=== PATIENT | male | born 2005 | race Two or more races ===

== ENCOUNTER 2023-04-07 11:21 | Inpatient (IN) ==
[2023-04-07] MEDS ORDERED: SODIUM CHLORIDE 0.9% 1000ML 1,000 ML IV ONE (12:25)
[2023-04-07] MEDS ORDERED: ONDANSETRON INJ 2 MG/ML 2 ML VIAL IV STA (12:25)
--- NOTE | 2023-04-07 12:31 | Emergency Department Note ---
Impression & Plan SBO (small bowel obstruction), Vomiting ED Provider Note NAME: TOSHIA GODINEZ AGE: 18 SEX: M : 2005 ARRIVES VIA: Walk-In INFORMANT: Patient, ED PROVIDER(S): Jg King DO CHIEF COMPLAINT: Nausea and vomiting HPI: The patient is a 18-year-old male who presented to the emergency department for an evaluation of nausea and vomiting. The patient states he started having symptoms overnight last night. He has been vomiting dark green emesis. He has intermittent episodes of abdominal pain which resolved when he vomits. He den ies having any GI bleeding. He has no diarrhea. He thinks he may have eaten bad meat from [employer] last evening. He has not been seen by provider prior to coming to the emergency department. ROS: See above HPI for pertinent positives & negatives. A total of 10 systems reviewed and were otherwise negative. PAST MEDICAL HISTORY: See Below PAST SURGICAL HISTORY: See Below FAMILY HISTORY: See Below SOCIAL HISTORY: See Below HOME MEDICATIONS: See Below ALLERGIES: See Below VITALS: See Below PHYSICAL EXAMINATION: GENERAL: Patient is awake alert in no acute distress patient is resting comfortably and showing no signs of anxiety EYES: The conjunctivae are clear. The pupils are round and reactive. EARS, NOSE, MOUTH AND THROAT: The nose is without any evidence of any deformity. Mucous membranes are dry. NECK: The neck is nontender and supple. RESPIRATORY: Normal respiratory effort is noted there is no evidence of wheezing rhonchi or rales CARDIOVASCULAR: Regular rate and rhythm noted there no murmurs rubs or gallops normal S1 normal S2. GASTROINTESTINAL: The abdomen is soft and mildly distended. There is epigastric tenderness to palpation but no guarding or rigidity. MUSCULOSKELETAL/EXTREMITIES: There is no evidence of gross deformity full range of motion is noted in the hips and shoulders. SKIN: There is no obvious evidence of any rash. There are no petechiae, pallor or cyanosis noted. NEUROLOGIC: Patient is awake alert and oriented x3 strength is symmetric patellar reflexes are 2+ bilaterally MEDICAL DECISION MAKING: The patient is a 18-year-old male who presented to the emergency department for nausea vomiting. He did have abdominal pain. Abdominal exam appeared to be consistent with abdominal distention as well as epigastric tenderness but this was not a clear surgical abdomen. Given his exam CT of the abdomen pelvis was obtained to rule out any other intra-abdominal pathology. I discussed the patient's laboratory and radiographic studies with him. He was treated with IV fluids and IV pain medication in the emergency department. On subsequent reevaluation he was improved. I discussed the patient's condition with the on- call general surgical group. They have agreed to evaluate the patient in the emergency department for further management and disposition. Triage Nursing notes reviewed. Prior medical records reviewed Vital Signs: reviewed and remarkable for no significant abnormalities Differential diagnosis: Gastroenteritis, food borne illness, infections, appendicitis, diverticulitis, inflammatory bowel disease, obstruction, GI bleed, biliary pathology, volvulus, as well as other pathologies. ER treatment provided: See below Diagnostics interpreted by me: ECG: none Cardiac Monitoring: An order was placed for continuous cardiac monitoring. The monitor shows a rate of 86 bpm with sinus rhythm. Laboratory studies: As stated above and show below. Imaging studies: See below. Radiographic imaging was reviewed by myself Consultation(s): I discussed this case with Bel who is covering for general surgery. Past Med/Surg History Medical History G6PD deficiency Social History Smoking Status: Former smoker Tobacco Type: E-cigarettes / Vaping Preferred Language: Telugu Feels Safe at Home: Yes Allergies Allergies Allergy/AdvReac Type Severity Reaction Status Date / Time acetaminophen Allergy Unknown pt has G6PD Verified 03/21/23 21:05 alfalfa Allergy Unknown pt has G6PD Verified 03/21/23 21:05 aspirin Allergy Unknown pt has G6PD Verified 03/21/23 21:05 blueberry Allergy Unknown pt has G6PD Verified 03/21/23 21:05 chloramphenicol Allergy Unknown pt has G6PD Verified 03/21/23 21:05 chloroquine Allergy Unknown pt has G6PD Verified 03/21/23 21:05 dapsone Allergy Unknown pt has G6PD Verified 03/21/23 21:05 everardo barksdale Allergy Unknown pt has G6PD Verified 03/21/23 21:05 isoniazid Allergy Unknown pt has G6PD Verified 03/21/23 21:05 isosorbide Allergy Unknown pt has G6PD Verified 03/21/23 21:05 lentils Allergy Unknown pt has G6PD Verified 03/21/23 21:05 methylene blue Allergy Unknown pt has G6Pd Verified 03/21/23 21:05 nitrofurantoin Allergy Unknown pt has G6PD Verified 03/21/23 21:05 peas Allergy Unknown pt has G6PD Verified 03/21/23 21:05 phenazopyridine Allergy Unknown pt has G6PD Verified 03/21/23 21:05 primaquine Allergy Unknown pt has G6PD Verified 03/21/23 21:05 quinine Allergy Unknown pt has G6PD Verified 03/21/23 21:05 Quinolones Allergy Unknown pt has G6PD Verified 03/21/23 21:05 rasburicase Allergy Unknown pt has G6PD Verified 03/21/23 21:05 sulfadiazine Allergy Unknown pt has G6PD Verified 03/21/23 21:05 sulfasalazine Allergy Unknown pt has G6PD Verified 03/21/23 21:05 Thiazides Allergy Unknown pt has G6PD Verified 03/21/23 21:05 tolbutamide Allergy Unknown pt has G6PD Verified 03/21/23 21:05 cotrimoxazole Allergy Unknown pt has G6PD Uncoded 03/21/23 21:05 dinitrate Allergy Unknown pt has G6PD Uncoded 03/21/23 21:05 glibenclamide Allergy Unknown pt has G6PD Uncoded 03/21/23 21:05 kidney barksdale Allergy Unknown pt has G6PD Uncoded 03/21/23 21:05 lester barksdale Allergy Unknown pt has G6PD Uncoded 03/21/23 21:05 liquorice Allergy Unknown pt has G6PD Uncoded 03/21/23 21:05 vitamin c Allergy Unknown pt has G6PD Uncoded 03/21/23 21:05 vitamin k Allergy Unknown pt has G6PD Uncoded 03/21/23 21:05 Home Meds Home Medications Medication Instructions Recorded Confirmed lisdexamfetamine 10 mg capsule 20 mg PO QAM 08/13/22 03/21/23 (Vyvanse) lisdexamfetamine 50 mg capsule 50 mg PO QAM 08/13/22 03/21/23 (Vyvanse) methylphenidate HCl 5 mg tablet 15 mg PO .DAILY @ 1600 11/03/22 03/21/23 Results & Data (ED) Vital Signs Vital Signs - 24 hr 04/07/23 11:49 04/07/23 12:12 04/07/23 15:21 Temperature 36.9 C Temperature Source Temporal Artery Scan Pulse Rate 86 Pulse Rate [Finger] 86 Respiratory Rate 18 19 Respiratory Effort / Characteristics Non-Labored Spontaneous Respiratory Depth Normal Respiratory Pattern Regular Blood Pressure 132/83 Blood Pressure Mean 99 Pulse Oximetry 97 99 97 Oxygen Delivery Method Room Air Room Air Room Air Sepsis Recent Fever Within 48 Hours No Sepsis New/Unexplained Change in Mental Status N/A Sepsis Action Taken by Nursing No Action Required Home Medications Current Medication List: was personally reviewed by me Laboratory Data Attestation: I reviewed the patient's lab results. 04/07/23 12:15 04/07/23 12:15 Lab Results 04/07/23 04/07/23 Range/Units 12:15 12:15 WBC 7.89 (4.8-10.8) K/ul RBC 5.07 (4.70-6.10) M/uL Hgb 14.0 (14.0-18.0) g/dl Hct 42.6 (42.0-52.0) % MCV 84.0 (80.0-100.0) fL MCH 27.6 (25.0-34.0) pg MCHC 32.9 (32.0-36.0) g/dL RDW Std Deviation 36.2 L (36.4-46.3) fL RDW Coeff of Shefali 12.1 (11.5-14.5) % Plt Count 272 (130-400) K/uL MPV 9.3 L (9.4-12.4) fL Immature Gran % (Auto) 0.5 % Neut % (Auto) 79.6 % Lymph % (Auto) 12.0 % [place] % (Auto) 5.6 % Eos % (Auto) 1.3 % Baso % (Auto) 1.0 % Neut # (Auto) 6.28 (1.40-6.50) K/uL Lymph # (Auto) 0.95 L (1.2-3.4) K/uL [place] # (Auto) 0.44 (0.11-0.59) K/uL Eos # (Auto) 0.10 (0-0.50) K/uL Baso # (Auto) 0.08 (0-0.2) K/uL Immature Gran # (Auto) 0.04 (0.01-0.20) K/uL Sodium 136 (136-145) mmol/L Potassium 4.1 (3.5-5.1) mmol/L Chloride 102 (98-107) mmol/L Carbon Dioxide 26 (21-32) mmol/L Anion Gap 8 (3-11) BUN 18 (6-23) mg/dl Creatinine 0.85 (0.6-1.4) mg/dl Est Cr Clr Drug Dosing 148.5 ml/min Est GFR ( Amer) 145.4 ml/min Est GFR (Non-Af Amer) 125.4 ml/min BUN/Creatinine Ratio 21.2 H (10-20) Glucose 114 H (70-99(Fasting)) mg/dl Calcium 9.6 (8.6-10.3) mg/dl Total Bilirubin 1.4 H (0.2-1.0) mg/dl AST 40 H (13-39) U/L ALT 59 H (7-52) U/L Alkaline Phosphatase 84 (34-104) U/L Total Protein 8.1 (6.0-8.3) gm/dl Albumin 4.7 (3.4-5.0) gm/dl Globulin 3.4 (2.5-4.0) gm/dl Albumin/Globulin Ratio 1.4 (0.9-2) Administered Medications Discontinued Medications Sodium Chloride (Nss 1000ml) 1,000 mls @ 999 mls/hr IV .Q1H1M ONE Stop: 04/07/23 13:25 Last Infusion: 04/07/23 13:33 Dose: 0 mls/hr Documented By: Admin: 04/07/23 12:32 Dose: 999 mls/hr Documented By: Ioversol (Optiray 320 100ml) 84 ml IV ONCE ONE Stop: 04/07/23 13:21 Last Admin: 04/07/23 13:11 Dose: 84 ml Documented By: BRM Lorazepam (Lorazepam 2 Mg/1 Ml Vial) 0.5 mg IV NOW STA Stop: 04/07/23 14:47 Last Admin: 04/07/23 15:21 Dose: 0.5 mg Documented By: Morphine Sulfate (Morphine Sulfate 4 Mg/Ml 1 Ml Carp\\Vial) 4 mg IV NOW STA Stop: 04/07/23 12:44 Last Admin: 04/07/23 12:57 Dose: 4 mg Documented By: Morphine Sulfate (Morphine Sulfate 4 Mg/Ml 1 Ml Carp\\Vial) 4 mg IV NOW STA Stop: 04/07/23 14:18 Last Admin: 04/07/23 14:44 Dose: 4 mg Documented By: Ondansetron HCl (Ondansetron Inj 2 Mg/Ml 2 Ml Vial) 4 mg IV NOW STA Stop: 04/07/23 12:26 Last Admin: 04/07/23 12:32 Dose: 4 mg Documented By: Imaging Data Attestation: I personally reviewed and interpreted this imaging study as follows: My Impression: CT of the abdomen and pelvis was obtained in the emergency department. My interpretation is no free air, signs of bowel obstruction are noted. Final report below. Radiologist's Impression: Abdomen/Pelvis CT 04/07/23 12:43 CT abd pelvis IV con only CLINICAL HISTORY: right sided pain TECHNIQUE: Helical axial images of the abdomen and pelvis were obtained and displayed. Automated dose lowering techniques and/or adjustment according to patient size were utilized for this exam. This exam was performed with intravenous contrast. CT DOSE: 1092.14 mGy.cm COMPARISON: None available at the time of this dictation. FINDINGS: Lower chest: No acute abnormality. Liver: Unremarkable. No focal lesions are seen. Gallbladder and biliary tree: No calcified gallstones. Normal caliber wall. No intra- or extrahepatic biliary ductal dilation. Pancreas: Unremarkable, no focal lesions. Spleen: Unremarkable. Adrenals: Unremarkable. Kidneys and ureters: Unremarkable. Bladder: Unremarkable. Reproductive organs: Unremarkable. Bowel: There is an abrupt narrowing of the mid ileum in the right mid abdomen (series 3 image 2 7) with equalization of small bowel contents proximal to this. There is mild wall thickening at the transition point and in distal loops and the colon is underdistended. Lymph nodes Retroperitoneal: Subcentimeter lymph nodes are noted. Pelvic: Unremarkable. Mesenteric: Subcentimeter lymph nodes are noted. Peritoneum: There is small free fluid in the pelvis and abdomen. Vessels: Unremarkable. Abdominal wall: A fat-containing umbilical hernia is seen. Bones: Unremarkable. IMPRESSION: Findings compatible with high-grade partial small bowel obstruction. No closed- loop morphology or bowel ischemia is seen. ACT 112: Negative or not required by law. Electronically signed by: Adam Boston M.D. 04/07/2023 1:41 PM KUB X-Ray 04/07/23 15:19 KUB HISTORY: Status post placement of an enteric tube NG tube placement COMPARISON: CT abdomen and pelvis of same day FINDINGS: Status post placement of an enteric tube with distal tip projected superiorly at the gastric fundus. Persistent dilated loops of small bowel measu ring up to approximately 4 cm. Contrast noted within a distended urinary bladder and also within the bilateral renal collecting systems. No renal calculi. No ureteral calculi. No pneumoperitoneum or pneumatosis. No fracture. IMPRESSION: 1. Status post placement of an enteric tube with distal tip projected over the gastric fundus. 2. Persistent small bowel obstruction. ACT 112: Negative or not required by law. The above report was generated using voice recognition software. It may contain grammatical, syntax or spelling errors. Electronically signed by: Pedro Dugan M.D. 04/07/2023 3:33 PM Discharge Plan Visit Data Chief Complaint: Vomiting Stated Complaint: POSSIBLE FOOD POISONING; VOMITING; HEADACHE ED Provider: Jg King Discharge Problem: SBO (small bowel obstruction), Vomiting Patient Disposition: Being Evaluated by Surgeon Forms Stand Alone Forms: [facility] Prescriptions Prescriptions: No Action methylphenidate HCl 5 mg tablet 15 mg PO .DAILY @ 1600 Rx Instructions: PER PT "HAVE NOT TAKEN TODAY". Vyvanse 50 mg capsule 50 mg PO QAM Rx Instructions: TOTAL DOSE 70 MG--TAKES WITH 20 MG CAP. Vyvanse 10 mg capsule 20 mg PO QAM Rx Instructions: TOTAL DOSE 70 MG--TAKES WITH 50 MG CAP. Referrals Referrals: [facility] [Primary Care Provider] -
[2023-04-07 12:41] LABS: Basophils # (auto) 0.08 K/uL (0-0.2); Eosinophils % (auto) 1.3 %; Hematocrit (blood only) 42.6 % (42.0-52.0); Immature Granulocytes # (auto) 0.04 K/uL (0.01-0.20); Immature Granulocytes % (auto) 0.5 %; Lymphocytes # (auto) 0.95 K/uL (1.2-3.4); Mean Corpuscular Hemoglobin 27.6 pg (25.0-34.0); Mean Corpuscular Hgb Conc 32.9 g/dL (32.0-36.0); Mean Platelet Volume 9.3 fL (9.4-12.4); Monocytes # (auto) 0.44 K/uL (0.11-0.59); Monocytes % (auto) 5.6 %; Neutrophils # (auto) 6.28 K/uL (1.40-6.50); Neutrophils % (auto) 79.6 %; Platelet Count 272 K/uL (130-400); RDW Coefficient of Variation 12.1 % (11.5-14.5); RDW Standard Deviation 36.2 fL (36.4-46.3); Red Blood Count 5.07 M/uL (4.70-6.10); White Blood Count 7.89 K/ul (4.8-10.8)
[2023-04-07] MEDS ORDERED: MoRPHine SULFATE 4 MG/ML 1 ML CARP\\VIAL IV STA ×2 (12:43→14:17)
[2023-04-07 12:57] LABS: Albumin Globulin Ratio 1.4 (0.9-2); Albumin Level 4.7 gm/dl (3.4-5.0); BUN Creatinine Ratio 21.2 (10-20); Bilirubin,Total 1.4 mg/dl (0.2-1.0); Calcium 9.6 mg/dl (8.6-10.3); Creatinine Clr Calc Pharmacy 148.5 ml/min; Est GFR (African American) 145.4 ml/min; Est GFR (Non-African American) 125.4 ml/min; Globulin 3.4 gm/dl (2.5-4.0); Potassium 4.1 mmol/L (3.5-5.1); Total Protein 8.1 gm/dl (6.0-8.3)
[2023-04-07] MEDS ORDERED: OPTIRAY 320 100ml IV ONE (13:20)
--- NOTE | 2023-04-07 13:42 | CT Scan Report ---
CT abd pelvis IV con only CLINICAL HISTORY: right sided pain TECHNIQUE: Helical axial images of the abdomen and pelvis were obtained and displayed. Automated dose lowering techniques and/or adjustment according to patient size were utilized for this exam. This e xam was performed with intravenous contrast. CT DOSE: 1092.14 mGy.cm COMPARISON: None available at the time of this dictation. FINDINGS: Lower chest: No acute abnormality. Liver: Unremarkable. No focal lesions are seen. Gallbladder and biliary tree: No calcified gallstones. Normal caliber wall. No intra- or extrahepatic biliary ductal dilation. Pancreas: Unremarkable, no focal lesions. Spleen: Unremarkable. Adrenals: Unremarkable. Kidneys and ureters: Unremarkable. Bladder: Unremarkable. Reproductive organs: Unremarkable. Bowel: There is an abrupt narrowing of the mid ileum in the right mid abdomen (series 3 image 2 7) wi th equalization of small bowel contents proximal to this. There is mild wall thickening at the transi tion point and in distal loops and the colon is underdistended. Lymph nodes Retroperitoneal: Subcentimeter lymph nodes are noted. Pelvic: Unremarkable. Mesenteric: Subcentimeter lymph nodes are noted. Peritoneum: There is small free fluid in the pelvis and abdomen. Vessels: Unremarkable. Abdominal wall: A fat-containing umbilical hernia is seen. Bones: Unremarkable. IMPRESSION: Findings compatible with high-grade partial small bowel obstruction. No closed-loop morphology or bow el ischemia is seen. ACT 112: Negative or not required by law. Electronically signed by: Adam Boston M.D. 04/07/2023 1:41 PM
[2023-04-07] MEDS ORDERED: PROMETHAZINE HCL 12.5 MG in SODIUM CHLORIDE 0.9% 50 ML IV PRN (14:46)
[2023-04-07] MEDS ORDERED: MoRPHine SULFATE 2 MG/ML CARP IV PRN (14:46)
[2023-04-07] MEDS ORDERED: LORazepam 2 MG/1 ML VIAL IV STA (14:46)
--- NOTE | 2023-04-07 15:02 | History & Physical Report ---
Date of Service April 07, 2023 Assessment & Plan (1) SBO (small bowel obstruction): Plan: 18 year-old male with no history of abdominal surgeries presenting to ED with less than 12 hour history of abdominal pain in mid abdomen with associated nausea and vomiting after eating raw burger from [employer]. CT scan suggestive high grade SBO at mid ileum however no signs of closed loop obstruction or ischemia. Abdomen is soft, mildly distended and moderately tender in mid upper abdomen without peritonitis, rigidity or guarding. Plan: Discussed imaging results with patient. Etiology of SBO is unknown as he has had no prior obstructions however this could be secondary to gastroenteritis due to eating raw [employer]amburger meat and causing transient obstruction. Given his abdominal examination is without significant distention or any peritonitis, will plan for conservative measures with NGT for decompression and NPO for bowel rest with pain management as needed. Will repeat am labs KUB in am Will continue to closely monitor. Did discuss with patient if he does not improve with conservative measures he may need surgical intervention. Dr. Hernandez was present during my examination and discussed plan with patient. History of Present Illness Chief Complaint: abdominal pain with nausea and vomiting Primary Care Provider: [facility] Angelita is a 18 year-old male with no prior abdominal surgical history who presented to emergency department this morning with complaint of increasing abdominal pain in mid abdomen with associated nausea and vomiting after eating burger from [employer] in which he believes was raw. States he ate the burger caryl between 1-3 am and noticed the meat looked raw after vomiting. States he had a few more episodes of vomiting and pain and then pain improved after vomiting. Passing gas and had regular formed bowel movement this morning. Denies of any prior abdominal surgical history. Feeling chills and feverish but did not take temperature. Very anxious. ER work-up included labs which showed no leukocytosis. CT scan of abdomen/pelvis with IV contrast showing high grade SBO at mid ileum with thickening of the distal small bowel wall. No evidence of closed loop obstruction or ischemia. Pain was about 8/10 then /10 with first dose of IV Morphine. Now rating pain about 5-6/10. Allergies Allergy/AdvReac Type Severity Reaction Status Date / Time acetaminophen Allergy Unknown pt has G6PD Verified 03/21/23 21:05 alfalfa Allergy Unknown pt has G6PD Verified 03/21/23 21:05 aspirin Allergy Unknown pt has G6PD Verified 03/21/23 21:05 blueberry Allergy Unknown pt has G6PD Verified 03/21/23 21:05 chloramphenicol Allergy Unknown pt has G6PD Verified 03/21/23 21:05 chloroquine Allergy Unknown pt has G6PD Verified 03/21/23 21:05 dapsone Allergy Unknown pt has G6PD Verified 03/21/23 21:05 everardo barksdale Allergy Unknown pt has G6PD Verified 03/21/23 21:05 isoniazid Allergy Unknown pt has G6PD Verified 03/21/23 21:05 isosorbide Allergy Unknown pt has G6PD Verified 03/21/23 21:05 lentils Allergy Unknown pt has G6PD Verified 03/21/23 21:05 methylene blue Allergy Unknown pt has G6Pd Verified 03/21/23 21:05 nitrofurantoin Allergy Unknown pt has G6PD Verified 03/21/23 21:05 peas Allergy Unknown pt has G6PD Verified 03/21/23 21:05 phenazopyridine Allergy Unknown pt has G6PD Verified 03/21/23 21:05 primaquine Allergy Unknown pt has G6PD Verified 03/21/23 21:05 quinine Allergy Unknown pt has G6PD Verified 03/21/23 21:05 Quinolones Allergy Unknown pt has G6PD Verified 03/21/23 21:05 rasburicase Allergy Unknown pt has G6PD Verified 03/21/23 21:05 sulfadiazine Allergy Unknown pt has G6PD Verified 03/21/23 21:05 sulfasalazine Allergy Unknown pt has G6PD Verified 03/21/23 21:05 Thiazides Allergy Unknown pt has G6PD Verified 03/21/23 21:05 tolbutamide Allergy Unknown pt has G6PD Verified 03/21/23 21:05 cotrimoxazole Allergy Unknown pt has G6PD Uncoded 03/21/23 21:05 dinitrate Allergy Unknown pt has G6PD Uncoded 03/21/23 21:05 glibenclamide Allergy Unknown pt has G6PD Uncoded 03/21/23 21:05 kidney barksdale Allergy Unknown pt has G6PD Uncoded 03/21/23 21:05 lester barksdale Allergy Unknown pt has G6PD Uncoded 03/21/23 21:05 liquorice Allergy Unknown pt has G6PD Uncoded 03/21/23 21:05 vitamin c Allergy Unknown pt has G6PD Uncoded 03/21/23 21:05 vitamin k Allergy Unknown pt has G6PD Uncoded 03/21/23 21:05 Home Medications Medication Instructions Recorded Confirmed Type lisdexamfetamine 10 mg capsule 20 mg PO QAM 09/20/22 04/28/23 History (Vyvanse) lisdexamfetamine 50 mg capsule 50 mg PO QAM 08/13/22 03/21/23 History (Vyvanse) methylphenidate HCl 5 mg tablet 15 mg PO .DAILY @ 1600 11/03/22 03/21/23 History Past Med/Surg History Medical History G6PD deficiency Social History Smoking Status: Former smoker Tobacco Type: E-cigarettes / Vaping Preferred Language: Khmer Feels Safe at Home: Yes Review of Systems Review of Systems: All systems reviewed & are unremarkable except as noted in HPI & below Physical Exam Constitutional: WD/WN, vitals as above + obese and cooperative; no acute distress, not ill appearing, not frail appearing, not in distress, not diaphoretic and not lethargic Respiratory: normal respiratory effort, lungs clear to auscultation Cardiovascular: Rate/Rhythm: regular rate and + tachycardic Heart Sounds: normal S1 and normal S2 Gastrointestinal (Abdomen): Inspection/Auscultation: abdomen normal to inspection, + abdomen distended (mildly in upper mid abdomen) and + hypoactive bowel sounds (bowel sounds present in RLQ); + abnormal bowel sounds, no abdominal surgical scar, no high-pitched sounds and no hyperactive bowel sounds Percussion/Palpation: + abdomen tender (Mid upper abdomen) and abdomen soft; no guarding, abdomen not rigid and abdomen not firm no peritonitis Skin: no rashes, warm and dry Psychiatric: Orientation: alert and oriented x 3 Affect: + anxious affect Results & Data Results & Data Vital Signs (Past 12 Hours) Vital Signs Temp Pulse Pulse Resp BP Pulse Ox O2 Del Method 04/07/23 12:12 86 19 99 Room Air 04/07/23 11:49 36.9 C 86 18 132/83 97 Room Air Laboratory Results 04/07/23 04/07/23 Range/Units 12:15 12:15 WBC 7.89 (4.8-10.8) K/ul RBC 5.07 (4.70-6.10) M/uL Hgb 14.0 (14.0-18.0) g/dl Hct 42.6 (42.0-52.0) % MCV 84.0 (80.0-100.0) fL MCH 27.6 (25.0-34.0) pg MCHC 32.9 (32.0-36.0) g/dL RDW Std Deviation 36.2 L (36.4-46.3) fL RDW Coeff of Shefali 12.1 (11.5-14.5) % Plt Count 272 (130-400) K/uL MPV 9.3 L (9.4-12.4) fL Immature Gran % (Auto) 0.5 % Neut % (Auto) 79.6 % Lymph % (Auto) 12.0 % [place] % (Auto) 5.6 % Eos % (Auto) 1.3 % Baso % (Auto) 1.0 % Neut # (Auto) 6.28 (1.40-6.50) K/uL Lymph # (Auto) 0.95 L (1.2-3.4) K/uL [place] # (Auto) 0.44 (0.11-0.59) K/uL Eos # (Auto) 0.10 (0-0.50) K/uL Baso # (Auto) 0.08 (0-0.2) K/uL Immature Gran # (Auto) 0.04 (0.01-0.20) K/uL Sodium 136 (136-145) mmol/L Potassium 4.1 (3.5-5.1) mmol/L Chloride 102 (98-107) mmol/L Carbon Dioxide 26 (21-32) mmol/L Anion Gap 8 (3-11) BUN 18 (6-23) mg/dl Creatinine 0.85 (0.6-1.4) mg/dl Est Cr Clr Drug Dosing 148.5 ml/min Est GFR ( Amer) 145.4 ml/min Est GFR (Non-Af Amer) 125.4 ml/min BUN/Creatinine Ratio 21.2 H (10-20) Glucose 114 H (70-99(Fasting)) mg/dl Calcium 9.6 (8.6-10.3) mg/dl Total Bilirubin 1.4 H (0.2-1.0) mg/dl AST 40 H (13-39) U/L ALT 59 H (7-52) U/L Alkaline Phosphatase 84 (34-104) U/L Total Protein 8.1 (6.0-8.3) gm/dl Albumin 4.7 (3.4-5.0) gm/dl Globulin 3.4 (2.5-4.0) gm/dl Albumin/Globulin Ratio 1.4 (0.9-2) Diagnostic Findings CT abd pelvis IV con only CLINICAL HISTORY: right sided pain TECHNIQUE: Helical axial images of the abdomen and pelvis were obtained and displayed. Automated dose lowering techniques and/or adjustment according to patient size were utilized for this exam. This exam was performed with intravenous contrast. CT DOSE: 1092.14 mGy.cm COMPARISON: None available at the time of this dictation. FINDINGS: Lower chest: No acute abnormality. Liver: Unremarkable. No focal lesions are seen. Gallbladder and biliary tree: No calcified gallstones. Normal caliber wall. No intra- or extrahepatic biliary ductal dilation. Pancreas: Unremarkable, no focal lesions. Spleen: Unremarkable. Adrenals: Unremarkable. Kidneys and ureters: Unremarkable. Bladder: Unremarkable. Reproductive organs: Unremarkable. Bowel: There is an abrupt narrowing of the mid ileum in the right mid abdomen (series 3 image 2 7) with equalization of small bowel contents proximal to this. There is mild wall thickening at the transition point and in distal loops and the colon is underdistended. Lymph nodes Retroperitoneal: Subcentimeter lymph nodes are noted. Pelvic: Unremarkable. Mesenteric: Subcentimeter lymph nodes are noted. Peritoneum: There is small free fluid in the pelvis and abdomen. Vessels: Unremarkable. Abdominal wall: A fat-containing umbilical hernia is seen. Bones: Unremarkable. IMPRESSION: Findings compatible with high-grade partial small bowel obstruction. No closed- loop morphology or bowel ischemia is seen. Code Status & VTE Plan VTE Prophylaxis Plan VTE Prophylaxis will be ordered: Yes
--- NOTE | 2023-04-07 15:35 | XRay Report ---
KUB HISTORY: Status post placement of an enteric tube NG tube placement COMPARISON: CT abdomen and pelvis of same day FINDINGS: Status post placement of an enteric tube with distal tip projected superiorly at the gastri c fundus. Persistent dilated loops of small bowel measuring up to approximately 4 cm. Contrast noted within a distended urinary bladder and also within the bilateral renal collecting systems. No renal calculi. No ureteral calculi. No pneumoperitoneum or pneumatosis. No fracture. IMPRESSION: 1. Status post placement of an enteric tube with distal tip projected over the gastric fundus. 2. Persistent small bowel obstruction. ACT 112: Negative or not required by law. The above report was generated using voice recognition software. It may contain grammatical, syntax o r spelling errors. Electronically signed by: Pedro Dugan M.D. 04/07/2023 3:33 PM
[2023-04-07] MEDS: SODIUM CHLORIDE 0.9% 1000ML 1,000 ML IV SCH (15:47)
[2023-04-07] MEDS: ONDANSETRON INJ 2 MG/ML 2 ML VIAL IV PRN (18:20)
[2023-04-07] MEDS: MoRPHine SULFATE 4 MG/ML 1 ML CARP\\VIAL IV PRN ×2 (18:21→21:47)
[2023-04-08] MEDS: SODIUM CHLORIDE 0.9% 1000ML 1,000 ML IV SCH ×3 (00:04→16:50)
[2023-04-08] MEDS ORDERED: diphenhydrAMINE 50 MG/ML VIAL IV ONE (00:50)
[2023-04-08 05:04] LABS: Basophils # (auto) 0.02 K/uL (0-0.2); Basophils % (auto) 0.4 %; Eosinophils # (auto) 0.04 K/uL (0-0.50); Eosinophils % (auto) 0.7 %; Hematocrit (blood only) 35.1 % (42.0-52.0); Hemoglobin 11.9 g/dl (14.0-18.0); Immature Granulocytes # (auto) 0.01 K/uL (0.01-0.20); Immature Granulocytes % (auto) 0.2 %; Lymphocytes # (auto) 1.09 K/uL (1.2-3.4); Lymphocytes % (auto) 19.5 %; Mean Corpuscular Hemoglobin 28.5 pg (25.0-34.0); Mean Corpuscular Hgb Conc 33.9 g/dL (32.0-36.0); Mean Corpuscular Volume 84.2 fL (80.0-100.0); Mean Platelet Volume 9.3 fL (9.4-12.4); Monocytes # (auto) 0.52 K/uL (0.11-0.59); Monocytes % (auto) 9.3 %; Neutrophils % (auto) 69.9 %; Platelet Count 223 K/uL (130-400); RDW Coefficient of Variation 12.1 % (11.5-14.5); RDW Standard Deviation 36.8 fL (36.4-46.3); Red Blood Count 4.17 M/uL (4.70-6.10); White Blood Count 5.58 K/ul (4.8-10.8)
[2023-04-08 05:19] LABS: Alanine Aminotransferase 49 U/L (7-52); Albumin Globulin Ratio 1.4 (0.9-2); Albumin Level 3.8 gm/dl (3.4-5.0); Alkaline Phosphatase 59 U/L (34-104); Anion Gap 6 (3-11); Aspartate Aminotransferase 31 U/L (13-39); BUN Creatinine Ratio 14.3 (10-20); Bilirubin,Total 1.4 mg/dl (0.2-1.0); Blood Urea Nitrogen 11 mg/dl (6-23); Calcium 8.5 mg/dl (8.6-10.3); Carbon Dioxide 27 mmol/L (21-32); Chloride 104 mmol/L (98-107); Creatinine Clr Calc Pharmacy 163.9 ml/min; Est GFR (African American) > 150.0 ml/min; Est GFR (Non-African American) 130.6 ml/min; Globulin 2.7 gm/dl (2.5-4.0); Glucose 110 mg/dl (70-99(Fasting)); Potassium 3.4 mmol/L (3.5-5.1); Sodium 137 mmol/L (136-145); Total Protein 6.5 gm/dl (6.0-8.3)
--- NOTE | 2023-04-08 09:18 | Surgery Progress Note ---
Date of Service April 08, 2023 Assessment & Plan (1) SBO (small bowel obstruction): Plan: 18 year-old male with no history of abdominal surgeries presenting to ED with less than 12 hour history of abdominal pain in mid abdomen with associated nausea and vomiting after eating raw burger from [employer]. CT scan suggestive high grade SBO at mid ileum however no signs of closed loop obstruction or ischemia. Abdomen is soft, mildly distended and moderately tender in mid upper abdomen without peritonitis, rigidity or guarding. 04/08/2023: afebrile, vss no abdominal pain this morning no n,v passing flatus 200 cc NGT output since placement awaiting KUB from today Plan: Will keep NGT for now continue ambulation possibly remove NGT later this morning/early afternoon and trial clear liquids updated Mom by phone Dr. Hernandez has seen and examined pt, agrees with above. Admission and Anticipated Discharge Date Admission Date: April 07, 2023 Subjective feeling much better today no pain this morning passing gas no bowel movement walking hallway no nausea or vomiting Physical Exam Constitutional: WD/WN, vitals as above cooperative and comfortable; no acute distress and not ill appearing Gastrointestinal (Abdomen): Inspection/Auscultation: abdomen normal to inspection and + hypoactive bowel sounds (but present); abdomen not distended, + abnormal bowel sounds and no abdominal surgical scar Percussion/Palpation: + abdomen tender (very mild in the epigastrium but improved compared to yesterday exam) and abdomen soft; no guarding and abdomen not rigid Skin: no rashes, warm and dry Psychiatric: A+Ox3, euthymic affect Results & Data Vital Signs (Past 12 Hours) Vital Signs Temp Pulse Resp BP Pulse Ox O2 Del Method 04/08/23 08:05 Room Air 04/08/23 07:03 36.9 C 77 16 107/64 97 Room Air 04/07/23 21:54 36.9 C 99 H 20 165/75 H 98 Room Air Laboratory Results 04/08/23 04/08/23 04/07/23 Range/Units 04:17 04:17 15:20 WBC 5.58 (4.8-10.8) K/ul RBC 4.17 L (4.70-6.10) M/uL Hgb 11.9 L (14.0-18.0) g/dl Hct 35.1 L (42.0-52.0) % MCV 84.2 (80.0-100.0) fL MCH 28.5 (25.0-34.0) pg MCHC 33.9 (32.0-36.0) g/dL RDW Std Deviation 36.8 (36.4-46.3) fL RDW Coeff of Shefali 12.1 (11.5-14.5) % Plt Count 223 (130-400) K/uL MPV 9.3 L (9.4-12.4) fL Immature Gran % (Auto) 0.2 % Neut % (Auto) 69.9 % Lymph % (Auto) 19.5 % Ida % (Auto) 9.3 % Eos % (Auto) 0.7 % Baso % (Auto) 0.4 % Neut # (Auto) 3.90 (1.40-6.50) K/uL Lymph # (Auto) 1.09 L (1.2-3.4) K/uL Ida # (Auto) 0.52 (0.11-0.59) K/uL Eos # (Auto) 0.04 (0-0.50) K/uL Baso # (Auto) 0.02 (0-0.2) K/uL Immature Gran # (Auto) 0.01 (0.01-0.20) K/uL Sodium 137 (136-145) mmol/L Potassium 3.4 L (3.5-5.1) mmol/L Chloride 104 (98-107) mmol/L Carbon Dioxide 27 (21-32) mmol/L Anion Gap 6 (3-11) BUN 11 (6-23) mg/dl Creatinine 0.77 (0.6-1.4) mg/dl Est Cr Clr Drug Dosing 163.9 ml/min Est GFR ( Amer) > 150.0 ml/min Est GFR (Non-Af Amer) 130.6 ml/min BUN/Creatinine Ratio 14.3 (10-20) Glucose 110 H (70-99(Fasting)) mg/dl Calcium 8.5 L (8.6-10.3) mg/dl Total Bilirubin 1.4 H (0.2-1.0) mg/dl AST 31 (13-39) U/L ALT 49 (7-52) U/L Alkaline Phosphatase 59 (34-104) U/L Total Protein 6.5 (6.0-8.3) gm/dl Albumin 3.8 (3.4-5.0) gm/dl Globulin 2.7 (2.5-4.0) gm/dl Albumin/Globulin Ratio 1.4 (0.9-2) SARS-CoV-2, RNA, NAAT NEGATIVE (NEGATIVE) 04/07/23 04/07/23 Range/Units 12:15 12:15 WBC 7.89 (4.8-10.8) K/ul RBC 5.07 (4.70-6.10) M/uL Hgb 14.0 (14.0-18.0) g/dl Hct 42.6 (42.0-52.0) % MCV 84.0 (80.0-100.0) fL MCH 27.6 (25.0-34.0) pg MCHC 32.9 (32.0-36.0) g/dL RDW Std Deviation 36.2 L (36.4-46.3) fL RDW Coeff of Shefali 12.1 (11.5-14.5) % Plt Count 272 (130-400) K/uL MPV 9.3 L (9.4-12.4) fL Immature Gran % (Auto) 0.5 % Neut % (Auto) 79.6 % Lymph % (Auto) 12.0 % Ida % (Auto) 5.6 % Eos % (Auto) 1.3 % Baso % (Auto) 1.0 % Neut # (Auto) 6.28 (1.40-6.50) K/uL Lymph # (Auto) 0.95 L (1.2-3.4) K/uL Ida # (Auto) 0.44 (0.11-0.59) K/uL Eos # (Auto) 0.10 (0-0.50) K/uL Baso # (Auto) 0.08 (0-0.2) K/uL Immature Gran # (Auto) 0.04 (0.01-0.20) K/uL Sodium 136 (136-145) mmol/L Potassium 4.1 (3.5-5.1) mmol/L Chloride 102 (98-107) mmol/L Carbon Dioxide 26 (21-32) mmol/L Anion Gap 8 (3-11) BUN 18 (6-23) mg/dl Creatinine 0.85 (0.6-1.4) mg/dl Est Cr Clr Drug Dosing 148.5 ml/min Est GFR ( Amer) 145.4 ml/min Est GFR (Non-Af Amer) 125.4 ml/min BUN/Creatinine Ratio 21.2 H (10-20) Glucose 114 H (70-99(Fasting)) mg/dl Calcium 9.6 (8.6-10.3) mg/dl Total Bilirubin 1.4 H (0.2-1.0) mg/dl AST 40 H (13-39) U/L ALT 59 H (7-52) U/L Alkaline Phosphatase 84 (34-104) U/L Total Protein 8.1 (6.0-8.3) gm/dl Albumin 4.7 (3.4-5.0) gm/dl Globulin 3.4 (2.5-4.0) gm/dl Albumin/Globulin Ratio 1.4 (0.9-2) SARS-CoV-2, RNA, NAAT (NEGATIVE)
[2023-04-08] MEDS ORDERED: bisacodyL 10 MG SUPP PR STA (12:02)
[2023-04-08] MEDS: ONDANSETRON INJ 2 MG/ML 2 ML VIAL IV PRN (12:35)
--- NOTE | 2023-04-08 21:39 | XRay Report ---
XR KUB/Abdomen 1 view CLINICAL HISTORY: eval SBO, s/p NGT insertion TECHNIQUE: 1 view of the abdomen was obtained. Comparison: Comparison is made to abdomen radiograph 04/07/2023 FINDINGS: Enteric tube is seen with the tip and side-port below the diaphragm. The osseous structures are gross ly unremarkable. Multiple gas-distended loops of bowel are seen measuring up to 48 mm. A moderate zully unt of stool is noted within the large bowel. IMPRESSION: Continued small bowel obstruction. ACT 112: Negative or not required by law. Electronically signed by: Adam Boston M.D. 04/08/2023 9:37 PM
[2023-04-08] MEDS ORDERED: MELATONIN 3 MG TAB PO PRN (22:18)
[2023-04-09] MEDS: SODIUM CHLORIDE 0.9% 1000ML 1,000 ML IV SCH ×2 (01:37→11:08)
--- NOTE | 2023-04-09 09:53 | Surgery Progress Note ---
Date of Service April 09, 2023 Assessment & Plan (1) SBO (small bowel obstruction): Plan: 18 year-old male with no history of abdominal surgeries presenting to ED with less than 12 hour history of abdominal pain in mid abdomen with associated nausea and vomiting after eating raw burger from [employer]. CT scan suggestive high grade SBO at mid ileum however no signs of closed loop obstruction or ischemia. 04/09/2023: afebrile, vss no abdominal pain + return of bowel function tolerated clear liquids Plan: Discussed with patient that he is clinically improving now with no persistent abdominal pain, n, v and having return of bowel function with multiple bowel movements and passing gas. There was question of obtaining SBFT as discussed yesterday with Dr. Hernandez. Option of proceeding with study today however this can take time (a couple of hours) and would not be able to advance diet until completed. Discussed this does involve multiple abdominal xrays to follow contrast through small intestine. I would not recommend obtaining study as he is clinically improving however this would be up to patient/family. He discussed with mother and decided to proceed with advancing diet. Discussed with Dr. Hernandez who also agrees with advancing diet Full liquids decrease IV fluids to 80 cc/hr Continue to ambulate possible discharge home later this afternoon Admission and Anticipated Discharge Date Admission Date: April 07, 2023 Subjective "feeling great" had multiple liquid bowel movements after laxative had waves of pain yesterday with clears but resolved with bowel movements tolerated clears otherwise with no nausea or vomiting passing gas Physical Exam Constitutional: WD/WN, vitals as above cooperative and comfortable; no acute distress and not ill appearing Gastrointestinal (Abdomen): Inspection/Auscultation: abdomen normal to inspection and normal bowel sounds (all 4 quadrants today); abdomen not distended and no high-pitched sounds Percussion/Palpation: abdomen soft; abdomen nontender, no guarding, abdomen not rigid and abdomen not firm Psychiatric: A+Ox3, euthymic affect Results & Data Vital Signs (Past 12 Hours) Vital Signs Temp Pulse Resp BP Pulse Ox O2 Del Method 04/09/23 07:47 36.5 C 69 16 96/57 L 98 Room Air Diagnostic Findings XR KUB/Abdomen 1 view 04/08/2023 CLINICAL HISTORY: eval SBO, s/p NGT insertion TECHNIQUE: 1 view of the abdomen was obtained. Comparison: Comparison is made to abdomen radiograph 04/07/2023 FINDINGS: Enteric tube is seen with the tip and side-port below the diaphragm. The osseous structures are grossly unremarkable. Multiple gas-distended loops of bowel are seen measuring up to 48 mm. A moderate amount of stool is noted within the large bowel. IMPRESSION: Continued small bowel obstruction.
--- NOTE | 2023-04-10 15:00 | Discharge Summary ---
Date of Service April 10, 2023 Admission HPI Per Admitting Provider Angelita is a 18 year-old male with no prior abdominal surgical history who presented to emergency department this morning with complaint of increasing abdominal pain in mid abdomen with associated nausea and vomiting after eating burger from [email or web address] in which he believes was raw. States he ate the burger caryl between 1-3 am and noticed the meat looked raw after vomiting. States he had a few more episodes of vomiting and pain and then pain improved after vomiting. Passing gas and had regular formed bowel movement this morning. Denies of any prior abdominal surgical history. Feeling chills and feverish but did not take temperature. Very anxious. ER work-up included labs which showed no leukocytosis. CT scan of abdomen/pelvis with IV contrast showing high grade SBO at mid ileum with thickening of the distal small bowel wall. No evidence of closed loop obstruction or ischemia. Pain was about 8/10 then /10 with first dose of IV Morphine. Now rating pain about 5-6/10. Principal Diagnosis Small bowel obstruction gastroenteritis from eating raw meat Discharge Data Allergies Allergy/AdvReac Type Severity Reaction Status Date / Time acetaminophen Allergy Unknown pt has G6PD Verified 04/07/23 16:15 alfalfa Allergy Unknown pt has G6PD Verified 04/07/23 16:15 ascorbic acid Allergy Unknown pt has G6PD Verified 04/08/23 01:05 aspirin Allergy Unknown pt has G6PD Verified 04/07/23 16:15 barksdale Allergy Unknown venetie ira and Verified 04/08/23 01:03 kidney [place] allergy; pt has G6PD blueberry Allergy Unknown pt has G6PD Verified 04/07/23 16:15 chloramphenicol Allergy Unknown pt has G6PD Verified 04/07/23 16:15 chloroquine Allergy Unknown pt has G6PD Verified 04/07/23 16:15 dapsone Allergy Unknown pt has G6PD Verified 04/07/23 16:15 everardo barks[place] Allergy Unknown pt has G6PD Verified 04/07/23 16:15 isoniazid Allergy Unknown pt has G6PD Verified 04/07/23 16:15 isosorbide Allergy Unknown pt has G6PD Verified 04/07/23 16:15 lentils Allergy Unknown pt has G6PD Verified 04/07/23 16:15 licorice Allergy Unknown pt has G6PD Verified 04/08/23 01:05 methylene blue Allergy Unknown pt has G6Pd Verified 04/07/23 16:15 nitrofurantoin Allergy Unknown pt has G6PD Verified 04/07/23 16:15 peas Allergy Unknown pt has G6PD Verified 04/07/23 16:15 phenazopyridine Allergy Unknown pt has G6PD Verified 04/07/23 16:15 phytonadione (vitamin K1) Allergy Unknown pt has G6PD Verified 04/08/23 01:05 primaquine Allergy Unknown pt has G6PD Verified 04/07/23 16:15 quinine Allergy Unknown pt has G6PD Verified 04/07/23 16:15 Quinolones Allergy Unknown pt has G6PD Verified 04/07/23 16:15 rasburicase Allergy Unknown pt has G6PD Verified 04/07/23 16:15 sulfadiazine Allergy Unknown pt has G6PD Verified 04/07/23 16:15 sulfamethoxazole Allergy Unknown pt has G6PD Verified 04/08/23 00:56 [From Bactrim] sulfasalazine Allergy Unknown pt has G6PD Verified 04/07/23 16:15 Thiazides Allergy Unknown pt has G6PD Verified 04/07/23 16:15 tolbutamide Allergy Unknown pt has G6PD Verified 04/07/23 16:15 trimethoprim [From Bactrim] Allergy Unknown pt has G6PD Verified 04/08/23 00:56 dinitrate Allergy Unknown pt has G6PD Uncoded 04/07/23 16:15 glibenclamide Allergy Unknown pt has G6PD Uncoded 04/07/23 16:15 Consultations 04/07/23 14:07 Consult General Surgery Stat 04/09/23 14:30 Burn CD for patient Routine Ordered Studies 04/07/23 12:43 CT abd pelvis IV con only Stat Hospital Course (1) SBO (small bowel obstruction): Patient was admitted to hospital from emergency department for conservative management of the SBO as exam was not concerning for any peritonitis and no leukocytosis or electrolyte abnormalities. Conservative management initiated with NPO for bowel rest, NGT for decompression, IV fluids, IV antiemetics as needed, and pain management as needed. HD #1 patient was feeling much better, pain resolved, no further nausea or vomiting. Passing flatus. 200 cc out of NGT total. KUB showed persistent SBO but stool and air in colon. Dulcolax was given and patient had a bowel movement along with further flatus. NGT was removed in the afternoon on HD # 1 and clear liquids started. HD # 2, patient without abdominal pain, n,v. Tolerated clear liquids. + bowel function with multiple bowel movements. Diet was advanced to full liquids which he tolerated well. Patient was discharged home in stable condition on HD # 2. Likely etiology of SBO was from significant inflammation of loop of small bowel from eating raw meat. Total Time Total Time Spent Total Time Spent (In Minutes): 30 minutes Total Time Includes: Examination of the Patient, Discharge Planning and Medication Reconciliation Discharge Plan Discharge Items Patient Disposition: Home - Self-Care Reason For Visit: SBO Discharge Diagnosis: SBO Activity: Resume your previous activity Lifting: Gradually increase as tolerated Bathing: No limitations Sexual Activity: When tolerated Exercise/Sports: None and Gradually increase as tolerated Driving/Machine Use: No limitations Non-emergency contact: Primary Care Provider Call non-emergency contact if: your symptoms worsen and your pain is worsening Follow-up/Referrals: [place] [Primary Care Provider] - Diet: Low Fiber Addtl Attending Provider Instructions: Low fiber diet for 1-2 weeks and then increase fiber in diet as tolerated drink plenty of water try to avoid constipation Smaller more frequent meals during the day recommended. Eat slow, cut food into small pieces, and take time to eat. 4-6 meals recommended instead of 3 large meals. Present back to emergency room if you develop recurrence of abdominal pain, nausea, vomiting, and inability to pass gas or have a bowel movement. If you have persistent symptoms , may require gastrointestinal referral and potential small bowel follow through study to further evaluate cause of symptoms. Pending Studies at Discharge: No Stand-Alone Forms: [facility], Smoking Cessation Medications and DC Order Prescriptions: Continued methylphenidate HCl 5 mg tablet 15 mg PO .DAILY @ 1600 Rx Instructions: PER PT "HAVE NOT TAKEN FOR ABOUT 2 WEEKS". Vyvanse 50 mg capsule 50 mg PO QAM Rx Instructions: PER PT "HAVEN'T TAKEN FOR ABOUT A WEEK, NEED TO TALK WITH PROVIDER". TOTAL DOSE 70 MG--TAKES WITH 20 MG CAP. Vyvanse 10 mg capsule 20 mg PO QAM Rx Instructions: PER PT "HAVEN'T TAKEN FOR ABOUT A WEEK, NEED TO TALK WITH PROVIDER". TOTAL DOSE 70 MG--TAKES WITH 50 MG CAP. Discharge Orders: Discharge Order (Routine); Ordered 04/09/23 Ordered By: Bel Fountain/Other Patient Handouts: Low-Fiber Diet Admission Data Admit Date/Time: 04/07/23 14:47 Attending Provider: Olga Hernandez Admit Provider: Olga Hernandez Primary Care Provider: [place] Other Providers: Olga Hernandez Other Interventions: Discharge Summary Assessment (RN) Last Done: 04/09/23 14:09
== END 2023-04-09 14:47 | disposition home or self-care (01) | DRG 389 ==
LOC: ED 11:21 → EDINP 14:47 → 3W 16:14